=== PATIENT | male | born 1940 | race Caucasian/White ===

== ENCOUNTER → 2016-08-20 | Outpatient (CLI) | payer OTHER, BC ==
[~2016-08-20] MED LIST: APIX1TAB3 PO; ASPCH81X PO; BXN500 PO; CHERATUSSIN AC PO; HYDR-5688 PO; LNX125 PO; METO25TA56 PO; TAMS0.4C38 PO
--- NOTE | 2016-08-20 14:11 | DIAGNOSTIC IMAGING REPORT ---
LEFT INGUINAL ULTRASOUND CLINICAL HISTORY: Left lower quadrant pain. Hernia. COMPARISON STUDY: Bilateral inguinal ultrasound November 13, 2014. FINDINGS: Note was made of a probable small fat-containing reducible left inguinal hernia. IMPRESSION: Suspected small fat-containing reducible left inguinal hernia. Electronically signed by: Param Alvarado M.D. 08/20/2016 2:09 PM Dictated Date/Time: 08/20/2016 2:08 PM
== END | disposition home or self-care (01) ==
LOC: C.ULTR 13:41
PROVIDERS: ATTEND Family Medicine
DX: R10.32 Left lower quadrant pain (principal); K40.90 Unilateral inguinal hernia, without obstruction or gangrene, not specified as recurrent

== ENCOUNTER → 2016-09-20 | Day surgery (SDC) | payer OTHER, BC ==
[2016-09-09 08:19] VITALS: BMI 28.0
--- NOTE | 2016-09-09 08:55 | PAT Medication Instructions ---
Service Date Sep 09, 2016. Current Home Medication List Apixaban (Eliquis), 5 MG PO BID Clarithromycin (Clarithromycin), 500 MG PO BID Digoxin (Digoxin), 0.125 MG PO QAM Metoprolol Tartrate (Lopressor) (Lopressor), 25 MG PO BID [cheratussin ac], 15 ML PO UD PRN for Cough Medication Instructions For Your Scheduled Surgery Apixaban (Eliquis), 5 MG PO BID (hold one week prior to surgery per surgeon instructions) - Hold the following medications the morning of surgery: Clarithromycin (Clarithromycin), 500 MG PO BID Cheratussin AC 15 ML PO UD PRN for Cough - Take the following medications the morning of surgery with a sip of water: Digoxin (Digoxin), 0.125 MG PO QAM Metoprolol Tartrate (Lopressor) (Lopressor), 25 MG PO BID - Take the following medications as scheduled the night before surgery: Metoprolol Tartrate (Lopressor) (Lopressor), 25 MG PO BID Clarithromycin (Clarithromycin), 500 MG PO BID Cheratussin AC 15 ML PO UD PRN for Cough If you have any questions please call us at [phone] or [phone] ( [place]) or [phone]
[2016-09-09 09:28] LABS: BASO % 0.5 %; BASO ABS # 0.06 K/uL (0-0.2); COMPLETE YES; EOS % 4.8 %; HEMATOCRIT 43.3 % (42-52); IG% 0.9 %; LYMPH % 13.5 %; LYMPH ABS # 1.48 K/uL (1.2-3.4); MEAN CELL VOLUME 93.9 fL (80-100); MEAN CORPUSCULAR HEMOGLOBIN 32.3 pg (25-34); MEAN CORPUSCULAR HGB CONC 34.4 g/dl (32-36); MEAN PLATELET VOLUME 9.7 fL (7.4-10.4); MONO % 11.7 %; NEUT % 68.6 %; PLATELET COUNT 352 K/uL (130-400); RED BLOOD COUNT 4.61 M/uL (4.7-6.1); WHITE BLOOD COUNT 10.97 K/uL (4.8-10.8)
[2016-09-09 09:42] LABS: BUN/CREATININE RATIO 12.9 (10-20); CALCIUM 8.9 mg/dl (8.5-10.1); CREATININE 1.2 mg/dl (0.60-1.40); POTASSIUM 4.9 mmol/L (3.5-5.1)
[~2016-09-20] VITALS: Ht 175.3 cm; Wt 86.1 kg
[~2016-09-20] MED LIST changes: -ASPCH81X PO; +ATROPINE SULFATE 0.1 MG/ML 5ML SYR IV PRN; +BUPIVACAINE/EPINEPHRINE 0.5% MPF 1:200,000 30 ML VIAL ONE; +CEFAZOLIN 2000 MG/60 ML D5W IV SCH; +DEXAMETHASONE SOD INJ 4 MG/ML VIAL ONE; +EpHEDrine SULFATE INJ 50 MG/ML AMP IV PRN; +EpHEDrine SULFATE INJ 50 MG/ML AMP ONE; +FENTANYL CITRATE INJ 50 MCG/1 ML 2 ML VIAL ONE; +GLYCOPYRROLATE INJ 0.2 MG/ML VIAL ONE; +HEPARIN SOD 5000 UNIT/0.5 ML CARP SQ SCH; +HYDROCODONE/ACETAMOPHEN 5/325MG TAB PO PRN; +HYDROmorphone INJ 2 MG/ML SYR/VIAL IV PRN; +LACTATED RINGER'S 1000ML 1,000 ML IV SCH; +LIDOCAINE HCL 2% 2 ML VIAL (20MG/ML) ONE; +MIDAZOLAM HCL 1 MG/ML 2ML VIAL ONE; +NEOSTIGMINE METHYLSULFATE 5 MG/5 ML SYR ONE; +ONDANSETRON INJ 2 MG/ML 2 ML VIAL IV PRN; +ONDANSETRON INJ 2 MG/ML 2 ML VIAL ONE; +PHENYLEPHRINE 100MCG/ML 5ML SYR IV PRN; +PHENYLEPHRINE HCL INJ 10 MG/ML VIAL ONE; +PROPOFOL IV EMULSION 10 MG/ML 20 ML VIAL IV ONE; +ROCURONIUM BROMIDE 10 MG/ML 5 ML VIAL ONE; +SCOPOLAMINE 1.5 MG TDSY TD ONE; +SODIUM CHLORIDE 0.9% 1000ML 1,000 ML IV SCH; +SUCCINYLCHOLINE CHLORIDE 20 MG/ML 10 ML VIAL IV ONE; -TAMS0.4C38 PO
[2016-09-20 06:46] VITALS: BP 129/87; TEMP 36.6; O2SAT 98; Ht 175.3 cm; Wt 86.1 kg
--- NOTE | 2016-09-20 06:56 | History & Physical Bridge Note ---
H&P Re-Evaluation Bridge Note: I have examined the patient, reviewed the History & Physical and in the interval since the performance of the History & Physical I have noted the following changes of clinical significance: No changes noted
--- NOTE | 2016-09-20 07:46 | Discharge Instructions ---
Discharge Instructions Admission Reason for Admission: Left Inguinal Hernia Discharge Discharge Diagnosis / Problem: recurrent inguinal hernia Discharge Goals Goal(s): Decrease discomfort, Improve function Activity Recommendations Activity Limitations: as noted below Lifting Limitations: no more than 10 pounds Exercise/Sports Limitations: until after follow-up appointment May Resume Sexual Activity: after follow-up appointment Shower/Bathe: tomorrow . Instructions / Follow-Up Instructions / Follow-Up f/u with Dr. Carranza in 1-2 weeks. Current Hospital Diet Patient's current hospital diet: Discharge Diet Recommended Diet: Regular Diet Procedures Procedures Performed: open inguinal hernia repair with mesh Pending Studies Studies pending at discharge: no Medical Emergencies . Who to Call and When: Medical Emergencies: If at any time you feel your situation is an emergency, please call 911 immediately. . Non-Emergent Contact Non-Emergency issues call your: Primary Care Provider, Surgeon Call Non-Emergent contact if: temperature is above 101, wound has increased drainage, wound has increased redness . "Provider Documentation" section prepared by Ej Carranza. VTE Core Measure Inpt VTE Proph given/why not?: Unfractionated heparin SQ, SCD's
--- NOTE | 2016-09-20 09:00 | [facility] Operative Report ---
Operative Report Operative Date Sep 20, 2016. Pre-Operative Diagnosis Recurrent Inguinal Hernia Left. Post-Operative Diagnosis recurrent indirect LIH Procedure(s) Performed open left inguinal hernia repair with mesh Surgeon Channel Marketing Program Manager Surgeon(s) Cristobal Mtz PA-C Estimated Blood Loss 10ML Findings recurrent LIH ; indirect Specimens NONE PER SURGEON Anesthesia GET Complication(s) None Disposition Recovery Room / PACU I attest to the content of the Intraoperative Record and any orders documented therein. Any exceptions are noted below.
[2016-09-20 10:20] VITALS: BP 96/58; PULSE 74; TEMP 36.4; O2SAT 93
[2016-09-20 10:50] VITALS: BP 102/78; PULSE 78; O2SAT 95
--- NOTE | 2016-09-20 10:58 | Anesthesiology Progress Note ---
Anesthesia Post Op Note Date & Time Sep 20, 2016 at 10:58 Vital Signs Pain Intensity: 0 Vital Signs Past 12 Hours Date Time Temp Pulse Resp B/P Pulse Ox O2 Delivery O2 Flow Rate FiO2 09/20/16 10:20 36.4 74 18 96/58 93 Room Air 09/20/16 10:14 63 22 100/60 93 Room Air 09/20/16 10:13 100/60 09/20/16 10:10 74 24 09/20/16 10:10 75 24 92 09/20/16 10:05 66 19 93 09/20/16 10:05 65 19 09/20/16 10:04 61 22 93 09/20/16 10:04 63 22 09/20/16 10:02 99/64 09/20/16 10:00 97/61 09/20/16 09:59 67 20 92 09/20/16 09:59 63 20 09/20/16 09:58 97/67 09/20/16 09:54 74 24 09/20/16 09:54 72 24 93 09/20/16 09:52 108/72 09/20/16 09:49 66 20 09/20/16 09:49 67 20 92 09/20/16 09:48 71 19 93 09/20/16 09:48 73 19 09/20/16 09:47 36.6 09/20/16 09:43 68 23 92 09/20/16 09:43 67 23 09/20/16 09:42 119/76 09/20/16 09:41 71 23 93 09/20/16 09:41 69 23 09/20/16 09:38 108/76 09/20/16 09:36 70 17 09/20/16 09:36 69 17 93 09/20/16 09:32 128/78 09/20/16 09:31 75 21 94 09/20/16 09:31 75 21 09/20/16 09:30 72 20 95 09/20/16 09:30 72 20 09/20/16 09:28 110/82 09/20/16 09:25 69 22 99 09/20/16 09:25 65 22 09/20/16 09:23 119/71 09/20/16 09:20 70 22 100 09/20/16 09:20 69 22 09/20/16 09:19 71 21 09/20/16 09:19 68 21 99 09/20/16 09:18 120/81 09/20/16 09:14 73 21 96 09/20/16 09:14 72 21 09/20/16 09:13 119/81 09/20/16 09:09 73 19 09/20/16 09:09 36.6 78 19 111/69 93 Mask 10 09/20/16 09:09 73 19 99 09/20/16 06:46 36.6 20 129/87 98 Room Air Notes Mental Status: alert / awake / arousable, participated in evaluation Pt Amnestic to Procedure: Yes Nausea / Vomiting: adequately controlled Pain: adequately controlled Airway Patency, RR, SpO2: stable & adequate BP & HR: stable & adequate Hydration State: stable & adequate Anesthetic Complications: no major complications apparent
[2016-09-20 11:20] VITALS: BP 107/82; PULSE 78; TEMP 36.3; O2SAT 95
--- NOTE | 2016-09-20 12:08 | OPERATIVE REPORT ---
DATE OF OPERATION: 09/20/2016 PREOPERATIVE DIAGNOSIS: Recurrent left inguinal hernia. POSTOPERATIVE DIAGNOSIS: Recurrent indirect left inguinal hernia. PROCEDURE: Open repair of recurrent left inguinal hernia with mesh. SURGEON: Dr. Carranza. FINE JEWELRY SALES ASSOCIATE: Cristobal Mtz PA-C. ESTIMATED BLOOD LOSS: Approximately 5 mL. COMPLICATIONS: No immediate. ANESTHESIA: General. The patient tolerated the procedure well. OPERATIVE NOTE: After informed consent was obtained, the patient was taken to the operating suite, placed in supine position. After successful intubation a Barillas catheter was placed and the left groin was sterilely prepped and draped in usual fashion. An inguinal incision was made with a 15 blade scalpel and carried down through the soft tissue using electrocautery. We skeletonized the external oblique aponeurosis and made a small incision with a fresh 15 blade. We used Metzenbaum scissors to extend this through the external ring, as well as for several centimeters proximally. Once in the ring, we were able to elevate the cord and cord structures off the pubic bone with blunt finger dissection. A [place] drain was placed around it. We did not appreciate a direct hernia. Upon inspecting the cord and cord structures we found what originally we thought was a large cord lipoma. As we peeled this back off the cord structures, we realized that it was in fact the hernia sac. We were able to clamp it at its base and excised it with a Metzenbaum scissor. We tied it off with a 3-0 Vicryl tie and then were able to easily dunk the sac back into the abdominal cavity. No other abnormalities were identified. We irrigated the wound. We used a piece of polypropylene dc holed mesh as an onlay. It was secured distally with the Diego's ligament, laterally along the shelving portion of Poupart's ligament and medially along the midline musculature. The "arms" of the mesh were wrapped around behind the cord and cord structures and sutured to underlying muscle. At the end of the procedure it laid tension free and it was not impinging on the cord itself. We irrigated the wound a final time. I injected the periphery of the mesh with Marcaine for postoperative analgesia. We then closed the external oblique aponeurosis with 2-0 Vicryl in a running fashion. Soft tissue was irrigated and closed with 3-0 Vicryl and 4-0 Monocryl. Some additional Marcaine was injected around the skin for analgesia as well and some glue was used as a dressing. The patient was awakened, extubated, and transferred to recovery in stable condition. I attest to the content of the Intraoperative Record and any orders documented therein. Any exceptio ns are noted below.
== END | disposition home or self-care (01) ==
LOC: C.ACU 06:08
PROVIDERS: ATTEND Surgery
DX: K40.91 Unilateral inguinal hernia, without obstruction or gangrene, recurrent (principal); Z98.890 Other specified postprocedural states; Z90.89 Acquired absence of other organs; Z68.28 Body mass index [BMI] 28.0-28.9, adult; Z98.41 Cataract extraction status, right eye; Z98.42 Cataract extraction status, left eye; Z85.828 Personal history of other malignant neoplasm of skin; Z87.891 Personal history of nicotine dependence

== ENCOUNTER → 2017-02-16 | Outpatient (CLI) | payer OTHER, BC ==
[~2017-02-16] MED LIST changes: -ATROPINE SULFATE 0.1 MG/ML 5ML SYR IV PRN; -BUPIVACAINE/EPINEPHRINE 0.5% MPF 1:200,000 30 ML VIAL ONE; -BXN500 PO; -CEFAZOLIN 2000 MG/60 ML D5W IV SCH; -DEXAMETHASONE SOD INJ 4 MG/ML VIAL ONE; -EpHEDrine SULFATE INJ 50 MG/ML AMP IV PRN; -EpHEDrine SULFATE INJ 50 MG/ML AMP ONE; -FENTANYL CITRATE INJ 50 MCG/1 ML 2 ML VIAL ONE; -GLYCOPYRROLATE INJ 0.2 MG/ML VIAL ONE; -HEPARIN SOD 5000 UNIT/0.5 ML CARP SQ SCH; -HYDROCODONE/ACETAMOPHEN 5/325MG TAB PO PRN; -HYDROmorphone INJ 2 MG/ML SYR/VIAL IV PRN; -LACTATED RINGER'S 1000ML 1,000 ML IV SCH; -LIDOCAINE HCL 2% 2 ML VIAL (20MG/ML) ONE; -MIDAZOLAM HCL 1 MG/ML 2ML VIAL ONE; -NEOSTIGMINE METHYLSULFATE 5 MG/5 ML SYR ONE; -ONDANSETRON INJ 2 MG/ML 2 ML VIAL IV PRN; -ONDANSETRON INJ 2 MG/ML 2 ML VIAL ONE; -PHENYLEPHRINE 100MCG/ML 5ML SYR IV PRN; -PHENYLEPHRINE HCL INJ 10 MG/ML VIAL ONE; -PROPOFOL IV EMULSION 10 MG/ML 20 ML VIAL IV ONE; -ROCURONIUM BROMIDE 10 MG/ML 5 ML VIAL ONE; -SCOPOLAMINE 1.5 MG TDSY TD ONE; -SODIUM CHLORIDE 0.9% 1000ML 1,000 ML IV SCH; -SUCCINYLCHOLINE CHLORIDE 20 MG/ML 10 ML VIAL IV ONE
--- NOTE | 2017-02-16 11:10 | DIAGNOSTIC IMAGING REPORT ---
PELVIS 1 OR 2 VIEWS CLINICAL HISTORY: 76 years-old Male presenting with RIGHT HIP PAIN. TECHNIQUE: Single frontal view of the pelvis was obtained in standing position. COMPARISON: Plain radiographs of the right hip from March 20, [address] of the abdomen and pelvis from 2011. FINDINGS: Bilateral hip joints congruent. No acute fracture or malalignment. Normal pelvic bowel gas pattern. Soft tissues grossly unremarkable. IMPRESSION: 1. No acute osseous injury of the pelvis. Normal pelvis. Electronically signed by: Yordy Barbosa M.D. 02/16/2017 11:09 AM Dictated Date/Time: 02/16/2017 11:07 AM
== END | disposition home or self-care (01) ==
LOC: C.RDSM 11:42
PROVIDERS: ATTEND Family Medicine
DX: M25.551 Pain in right hip (principal)

== ENCOUNTER → 2017-12-05 | Outpatient (CLI) | payer OTHER, BC ==
[~2017-12-05] MED LIST changes: -HYDR-5688 PO
--- NOTE | 2017-12-05 15:40 | DIAGNOSTIC IMAGING REPORT ---
LUMBAR SPINE MIN 4 VIEWS CLINICAL HISTORY: 77 years-old Male presenting with LOW BACK PAIN. TECHNIQUE: Frontal, bilateral oblique, lateral, and coned in lateral views of the lumbar spine were obtained. COMPARISON: 01/07/2014. FINDINGS: Minimal levoscoliotic curvature of the lumbar spine centered at L2-3. Otherwise normal lumbar lordosis. Significant superior endplate concavity of L3 and to a lesser extent at L2 are unchanged from prior exam. No new compression deformity. Remaining vertebral bodies demonstrate normal height and alignment. Intervertebral disc heights maintained. Mild anterior osteophytosis. No significant osseous neural foraminal narrowing. Osteopenia suspected. No pars defect. Cholecystectomy clips noted. IMPRESSION: Findings suggest osteoporosis/osteopenia with old deformities. No convincing evidence of acute osseous injury. Mild degenerative change similar to prior without osseous neural foraminal narrowing. Electronically signed by: Yordy Barbosa M.D. 12/05/2017 3:38 PM Dictated Date/Time: 12/05/2017 3:36 PM
== END | disposition home or self-care (01) ==
LOC: C.RDSM 15:31
PROVIDERS: ATTEND Family Medicine
DX: M54.5 Low back pain (principal)